=== PATIENT | male | born 1970 | race Caucasian/White ===

== ENCOUNTER → 2022-08-20 12:55 | Outpatient (CLI) | payer OTHER, SELFPAY ==
--- NOTE | ~2022-08-20 | XR_ITS ---
XR chest 2V DATE: 08/20/2022 13:42 INDICATION: Tachycardia TECHNIQUE: 2 views COMPARISON: None FINDINGS: Normal heart size. No hilar or mediastinal enlargement. No pulmonary infiltrate or consolid ation, pleural effusion or pulmonary vascular congestion or pneumothorax. Degenerative spurring of th e thoracic spine. IMPRESSION: No active cardiopulmonary disease Reviewed, dictated and finalized at location L. [employer]
== END ==
PROVIDERS: PCP Family Medicine; Visit Provider Family Medicine
DX: R00.0 Tachycardia, unspecified (principal)
CPT/HCPCS: 71046

== ENCOUNTER 2022-09-09 08:49 | Outpatient (CLI) | payer OTHER, SELFPAY ==
--- NOTE | 2022-09-09 | ECHO_ITS ---
Patient Info Name: Martin Jordan Age: 52 years : 1970 Gender: Male Ht: 66 in Wt: 195 lbs BSA: 2.06 m2 HR: 66 bpm BP: 170 / 100 mmHg Technical Quality: Good Exam Date: 09/09/2022 9:05 AM Exam Location: [facility] Patient Status: Outpatient Admit Date: 09/09/2022 Staff Ordering Physician: Gordo Finnegan MD Hair Spring Cutter: Moses Mejía RDCS, RT Attending Provider: Gordo Finnegan MD Referring Physician: Kain MCNEIL; Exam Type: CA echo doppler color flow Study Info Indications R06.02 - Shortness of breath Complete two-dimensional, color flow and Doppler transthoracic echocardiogram is performed. Strain analysis performed. Summary 1. Complete two-dimensional, color flow and Doppler transthoracic echocardiogram is performed. 2. Left ventricular chamber dimension is normal. 3. Left ventricular systolic function is normal, estimated at 60-65%. 4. There is mild concentric increased left ventricular wall thickness. 5. The left ventricular diastolic function is normal. 6. E/e' 9 is minimally elevated. 7. Left atrial chamber dimension is mildly enlarged. 8. There is trace tricuspid valve regurgitation. Left Ventricle E/e' 9 is minimally elevated. Global longitudinal strain is abnormal at -15.0%. Left ventricular chamber dimension is normal. Left ventricular systolic function is normal, estimated at 60-65%. There is mild concentric increased left ventricular wall thickness. The left ventricular diastolic function is normal. Right Ventricle Right ventricular systolic function is normal and with normal TAPSE 2.7 cm. Right ventricular chamber dimension is normal. Left Atria Left atrial chamber dimension is mildly enlarged. Right Atria Right atrial chamber dimension is normal. Aortic Valve The aortic valve is trileaflet. There is no aortic valve stenosis. There is no aortic valve regurgitation. Pulmonic Valve There is no pulmonic regurgitation. Mitral Valve There is no mitral valve stenosis. There is no mitral valve regurgitation. Tricuspid Valve There is trace tricuspid valve regurgitation. RVSP is not calculated due to an inadequate TR jet. Pericardium/Pleural There is no pericardial effusion. Inferior Vena Cava Normal inferior vena cava with >50% collapse upon inspiration consistent with normal right atrial pressure, 5 mmHg. Aorta The aortic root size at the sinus of Valsalva is normal. Left Ventricular Outflow Tract Name Value Normal LVOT 2D LVOT Diameter 2.0 cm LVOT Doppler LVOT Peak Gradient 5 mmHg LVOT Mean Gradient 3 mmHg LVOT VTI 24 cm LVOT VTI/AV VTI Ratio 1.0 LVOT Stroke Volume 71 ml LVOT CO 4.7 l/min LVOT CI 2.3 l/min/m2 Mitral Valve Name Value Normal
== END 2022-09-09 08:50 | disposition home or self-care (01) ==
LOC: ANHCARD 08:50
PROVIDERS: PCP Family Medicine; Visit Provider Family Medicine
DX: R06.00 Dyspnea, unspecified (principal); R00.0 Tachycardia, unspecified
CPT/HCPCS: 93306

== ENCOUNTER 2023-04-12 06:11 | Day surgery (SDC) | payer OTHER, SELFPAY ==
[2023-03-16 11:39] VITALS: BMI 31.3
[2023-03-24 12:56] VITALS: BMI 29.2
[2023-04-12 07:30] VITALS: BP 174/99; PULSE 56; RESP 14; TEMP 36.6; O2SAT 98
--- NOTE | 2023-04-12 07:52 | WPDANESEPPF ---
Anes - Initial Pre Proc Eval Procedure: Operation Date: 04/12/23 08:30 Proposed Procedures p Diagnostic Colonoscopy - Tal Tay MD Date/Time: 04/12/23 07:52 Surgeon: Tal Tay MD Pre Op Diagnosis: Family History of Colon Polyps Patient Data Age: 52 Gender: M Height: 1.68 m Weight: 88 kg Allergies Allergy/AdvReac Type Severity Reaction Status Date / Time No Known Allergies Allergy Mild Verified 04/12/23 07:16 Home Medications Medication Instructions Recorded Confirmed Type alprazolam 0.5 mg tablet 0.5 mg PO BID PRN anxiety #30 tabs 02/24/23 04/12/23 Rx benazepril 10 mg tablet 10 mg PO DAILY #90 tabs 02/24/23 04/12/23 Rx ezetimibe 10 mg tablet (Zetia) 10 mg PO DAILY #90 tabs 02/24/23 04/12/23 Rx Patient hx anesthesia problems: none Family hx anesthesia problems: none Results Review: All pre-operative results and documents have been reviewed as part of the pre-operative evaluation. [facility] Past Medical History Medical History BMI 31.0-31.9,adult BMI 32.0-32.9,adult BMI 33.0-33.9,adult Bronchitis, not specified as acute or chronic Chronic fatigue COVID-19 Dietary counseling and surveillance (07/01/17) Dizziness Dyspnea Elevated bilirubin Encounter for general adult medical examination without abnormal findings Encounter for screening for diabetes mellitus Encounter for screening for malignant neoplasm of prostate Essential (primary) hypertension Hypertriglyceridemia Mixed hyperlipidemia Nocturia Paronychia of left index finger Screening for colon cancer Screening for thyroid disorder Tachycardia Surgical History Surgical History (Updated 04/12/23 @ 07:53 by Michael Gibson MD) H/O colonoscopy Family History Family History Mother Family history of malignant neoplasm of stomach Father Malignant neoplasm of prostate Sibling No problems noted. 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 Informed Consent: The patient's anesthetic plan and its attendant risks and benefits were discussed with the patient/family/POA. Questions were solicited and answers provided to the satisfaction of the patient/family/POA.
--- NOTE | 2023-04-12 07:55 | SUR.PREOP ---
Dr. Gibson aware of Pt's pre-op blood pressure. Pt states being asymptomatic. Has not taken blood pressure medications for several days. Pt appears to be in no apparent distress. No new orders at this time.
[2023-04-12] MEDS: LACTATED RINGERS 1,000 ML 150 ML IV CONT (07:57)
--- NOTE | 2023-04-12 08:17 | PM.HPGS ---
History of Present Illness History of Present Illness Consent: Risks, benefits, and alternatives have been discussed and questions answered. Patient agrees to proceed with procedure. Chief complaint: Family History of Colon Polyps Narrative: Martin Jordan is a 52 year old male here for colon screening Review of Systems Constitutional: Constitutional: Denies headache(s) and Denies weakness Eyes: Eyes: Denies blurry vision ENT: Reports Normal hearing present, Denies headache(s) and Denies neck pain Cardiovascular: Cardiovascular: Denies chest pain and Denies dyspnea Respiratory: Respiratory: Denies dyspnea Gastrointestinal: Gastrointestinal: Reports no additional gastrointestinal complaints Genitourinary: Genitourinary: Denies dysuria Musculoskeletal: Musculoskeletal: Denies neck pain Integumentary/Breasts: Skin/Breast: Denies dry skin Neurologic: Reports Normal hearing present, Denies headache(s) and Denies weakness Psychiatric: Psychiatric: Denies anxiety Endocrine: Endocrine: Denies change in body appearance Hematologic/Lymphatic: Hematologic/Lymphatic: Denies easy bleeding Allergic/Immunologic: Allergic/Immunologic: Denies urticaria PMFSH Past Medical History Medical History BMI 31.0-31.9,adult BMI 32.0-32.9,adult BMI 33.0-33.9,adult Bronchitis, not specified as acute or chronic Chronic fatigue COVID-19 Dietary counseling and surveillance (07/01/17) Dizziness Dyspnea Elevated bilirubin Encounter for general adult medical examination without abnormal findings Encounter for screening for diabetes mellitus Encounter for screening for malignant neoplasm of prostate Essential (primary) hypertension Hypertriglyceridemia Mixed hyperlipidemia Nocturia Paronychia of left index finger Screening for colon cancer Screening for thyroid disorder Tachycardia Surgical History Surgical History (Updated 04/12/23 @ 07:53 by Michael Gibson MD) H/O colonoscopy Family History Family History Mother Family history of malignant neoplasm of stomach Father Malignant neoplasm of prostate Sibling No problems noted. 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[employer] Gender identity (if verbalized by the patient): Male Spiritual care concerns: No Meds Home Medications and Allergies Home Medications Medication Instructions Recorded Confirmed Type alprazolam 0.5 mg tablet 0.5 mg PO BID PRN anxiety #30 tabs 02/24/23 04/12/23 Rx benazepril 10 mg tablet 10 mg PO DAILY #90 tabs 02/24/23 04/12/23 Rx ezetimibe 10 mg tablet (Zetia) 10 mg PO DAILY #90 tabs 02/24/23 04/12/23 Rx Allergies Allergy/AdvReac Type Severity Reaction Status Date / Time No Known Allergies Allergy Mild Verified 04/12/23 07:16 Vital Signs Vital Signs - 24 hr 04/12/23 07:30 Temperature 97.9 F Pulse Rate 56 L Respiratory Rate 14 Blood Pressure 174/99 H Pulse Oximetry 98 Oxygen Delivery Room Air Exam Const: General: comfortable and no acute distress HENMT: Face/Nose/Sinus: Normal nares present Eyes: General: appearance normal, both eyes and all related structures Neck: Neck: no JVD Resp: Auscultation: clear to auscultation bilaterally Cardio: Rate: regular rate Rhythm: regular rhythm GI: Inspection: non-distended GI Palp: Yes Soft to palpation Skin: General skin exam: normal color Neuro: Gener
[2023-04-12 08:40] VITALS: BP 119/62; PULSE 76; RESP 15; O2SAT 99
[2023-04-12 08:50] VITALS: BP 121/91; PULSE 69; RESP 15; O2SAT 100
--- NOTE | 2023-04-12 08:55 | WPDANESPN ---
Anes - Prog Note Post-Op Date/Time: 04/12/23 08:55 Cardiovascular status: normal Respiratory status: normal Airway patency: baseline Mental status: baseline Post-Op hydration status: normal Vital Signs: Last Vital Signs Temp 36.6 C 04/12/23 07:30 Pulse 76 04/12/23 08:40 Resp 15 04/12/23 08:40 BP 119/62 04/12/23 08:40 Pulse Ox 99 04/12/23 08:40 O2 Del Method Room Air 04/12/23 08:40 Pain Score (VAS): 0/10 I/O: Intake & Output 04/11/23 04/12/23 04/12/23 23:59 07:59 15:59 Intake Total 400 Balance 400 Patient Feedback: Patient satisfied with anesthetic care.
[2023-04-12 09:00] VITALS: BP 134/91; PULSE 57; RESP 15; O2SAT 100
== END 2023-04-12 09:10 | disposition home or self-care (01) ==
PROVIDERS: PCP Family Medicine; Visit Provider Internal Medicine Gastroenterology
PROC: 0DJD8ZZ Inspection of Lower Intestinal Tract, Via Natural or Artificial Opening Endoscopic (ICD-10-PCS; CPT 45378; principal; 2023-04-12 08:30)
DX: Z12.11 Encounter for screening for malignant neoplasm of colon (principal)
CPT/HCPCS: 45378

== ENCOUNTER 2023-12-03 14:30 | Outpatient (CLI) | payer BC, SELFPAY ==
--- NOTE | ~2023-12-03 | US_ITS ---
US abdomen complete EXAMINATION: US Abdomen Complete INDICATION: Abdominal pain PROCEDURE: Realtime High Resolution abdomen ultrasound. COMPARISON: No prior studies for comparison FINDINGS: Gallbladder within normal limits. No gallstones, pericholecystic fluid, gallbladder wall t hickening or biliary dilatation. Common bile duct measures 2.5 mm. Liver echotexture within normal limits without focal mass. Pancreas within normal limits. Pancreati c tail is obscured by bowel gas. Spleen is unremarkeable. Renal echotexture is within normal limits bilaterally without hydronephrosis, contour deforming mass or renal stone. Right kidney measures 11.9 cm. Left kidney measures 11.6 cm. Visualized aspects of the aorta and IVC are within normal limits. Portal vein is patent. No sonograph ic Mejía's sign indicated by the technologist. IMPRESSION: 1: Normal abdominal ultrasound. Reviewed, dictated and finalized at location B.
== END 2023-12-03 14:31 | disposition home or self-care (01) ==
LOC: ANHIMG 14:30
PROVIDERS: PCP Family Medicine; Visit Provider Nurse Practitioner Adult Health
DX: R10.10 Upper abdominal pain, unspecified (principal)
CPT/HCPCS: 76700

== ENCOUNTER 2023-12-07 06:59 | Emergency (ER) | payer BC, SELFPAY ==
[2023-12-07] VITALS (9 sets, daily range): BP systolic 150–195; BP diastolic 87–106; PULSE 66–87; RESP 13–20; TEMP 36.8–37.2; O2SAT 95–100
--- NOTE | ~2023-12-07 | CT_ITS ---
EXAMINATION: CT brain wo con DATE: 12/07/2023 09:17 INDICATION: Weakness. Dizziness. Hypertension. TECHNIQUE: Computed tomography (CT) of the head was performed without intravenous contrast. The mA wa s adjusted according to patient size. Iterative reconstruction technique was employed. The dose-lengt h product was 605.33 mGy-cm. COMPARISON: None FINDINGS: There is no intracranial hemorrhage, acute infarction, or abnormal intracranial mass lesion . The ventricles are normal in size. The orbits are normal. There is mild mucosal thickening in the e thmoid sinuses. There is a small left mastoid effusion. IMPRESSION: 1. Normal brain. Reviewed, dictated and finalized at location A. IMPRESSION: 1. Normal brain.
--- NOTE | 2023-12-07 07:46 | ECG_ITS ---
SEE SCANNED COPY FOR CONFIRMED REPORT MTDD
[2023-12-07 08:19] LABS: Basophils Absolute Auto 0.1 K/mm3 (0.0-0.1); Basophils Percent Auto 0.5 % (0.2-1.2); Eosinophils Absolute Auto 0.2 K/mm3 (0-0.3); Eosinophils Percent Auto 1.7 % (0-4.4); Hematocrit 53.3 % (42.0-52.0); Hemoglobin 18.7 g/dL (14.0-18.0); Immature Granulocyte Absolute 0.06 K/mm3 (0.00-0.031); Immature Granulocyte Percent A 0.5 % (0-0.5); Lymphocytes Absolute Auto 2.73 K/mm3 (0.9-3.2); Lymphocytes Percent Auto 21.1 % (18.3-44.2); Mean Corpuscular HGB Conc 35.1 g/dl (32-36); Mean Corpuscular Volume 88.4 fl (80-100); Mean Platelet Volume 11.2 fl (7.4-10.4); Monocytes Absolute Auto 1.2 K/mm3 (0.1-0.6); Monocytes Percent Auto 9.2 % (2.6-8.5); Neutrophils Absolute Auto 8.7 K/mm3 (1.3-6.7); Platelet Count Result 188 k/mm3 (150-375); Red Blood Count 6.03 M/mm3 (4.6-6.20); Red Cell Distribution Width 12.4 % (11.5-14.5); White Blood Count 12.9 K/mm3 (4.5-10.0)
[2023-12-07 08:21] LABS: Appearance Urine Clear (Clear); Bilirubin Urine Negative (Negative); Blood Urine Negative (Negative); Color Urine Yellow (Yellow); Glucose Urine UA Negative (Negative); Ketones Urine Negative (Negative); Leukocyte Esterase Ur Negative LEU/UL (Negative); Nitrate Urine Negative (Negative); Protein Urine Negative (Negative); Specific Grav Ur 1.019 (1.001-1.035); pH Urine 6.5 (5.0-9.0)
[2023-12-07 08:33] LABS: Alanine Aminotransferase 88 U/L (6-50); Albumin Level 4.4 g/dL (3.5-5.1); Alkaline Phosphatase 62 U/L (38-126); Anion Gap 5 mmol/L (4-12); Aspartate Amino Transferase 34 U/L (17-59); Bilirubin,Total 1.9 mg/dL (0.2-1.3); Blood Urea Nitrogen 20 mg/dL (9-20); Carbon Dioxide 26 mmol/L (22-30); Chloride 106 mmol/L (98-107); Estimated CRCL calculation 101 ml/min; Estimated Glomerular Filt Rate > 60; Glucose 94 mg/dL (65-110); Potassium 4.1 mmol/L (3.4-5.0); Sodium 137 mmol/L (137-145)
[2023-12-07 08:36] LABS: Add Urine Microscopic? NO
--- NOTE | 2023-12-07 09:32 | ED.DIZZY ---
HPI - Dizziness General Chief Complaint: Dizziness Stated Complaint: htn, dizziness, abd pain Time Seen by Provider: 12/07/23 08:04 History of Present Illness HPI Narrative: 53-year-old male presenting to the emergency department for evaluation for multiple complaints and involving dizziness, abdominal pain and some anxiety. Patient states he was having some upper abdominal symptoms last week and have follow-up with his primary care physician had negative ultrasounds of his upper abdomen. Patient states he was having some increased blood pressures today so he presented emergency department for evaluation. Patient was also complaining of some increased dizziness with this today. Patient states he has been very compliant with his blood pressure medications and is very physically active. Related Data Allergies Allergy/AdvReac Type Severity Reaction Status Date / Time No Known Allergies Allergy Mild Verified 12/03/23 10:26 Review of Systems Review of Systems: All systems reviewed & are unremarkable except as noted in HPI and below PMFSH Past Medical History Medical History (Updated 12/07/23 @ 12:20 by Catalino Yip MD) BMI 31.0-31.9,adult BMI 32.0-32.9,adult BMI 33.0-33.9,adult Bronchitis, not specified as acute or chronic Chronic fatigue COVID-19 Dietary counseling and surveillance (07/01/17) Dizziness Dyspnea Elevated bilirubin Encounter for general adult medical examination without abnormal findings Encounter for screening for diabetes mellitus Encounter for screening for malignant neoplasm of prostate Essential (primary) hypertension Hypertriglyceridemia Mixed hyperlipidemia Nausea Nocturia Paronychia of left index finger Screening for colon cancer Screening for thyroid disorder Tachycardia Upper abdominal pain Surgical History Surgical History H/O colonoscopy Family History Family History Mother Family history of malignant neoplasm of stomach Father Malignant neoplasm of prostate Sibling No problems noted. Other Cerebrovascular accident Diabetes mellitus Family history of coronary artery disease Hypertension Social History Social History Smoking status: Never smoker Second hand tobacco smoke exposure: Yes Alcohol intake: current Alcohol use details: 1 PER MONTH Substance use: never Substance use type: does not use Do You Feel Safe in your Home?: Yes Lack of Transportation: No Lack of Food: Never True Current Housing: I Have Housing Concerned About Future Housing: No Difficulty Paying Gas/Electric Bills: No Difficulty Paying for Meds: No Currently Unemployed: No Education: Bachelor's Degree Difficulty w/ Childcare or Family Care: No Living arrangements: alone Occupation/Education: retired 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 Gender identity (if verbalized by the patient): Male Spiritual care concerns: No Exam Narrative: APPEARANCE: Well appearing, no pain, no distress, well-nourished. HEAD: normocephalic, atraumatic. EYES: PERRLA/EOMI, conjunctivae clear. NOSE: Normal no drainage NECK: Supple. No adenopathy, no masses. RESPIRATORY: Airway patent, respirations nonlabored. Clear to auscultation bilaterally, no rales, rhonchi, wheezing. CARDIOVASCULAR: Regular rate and rhythm without murmurs rubs or gallops. ABDOMINAL: Soft, nontender, nondistended, normal bowel sounds MUSCULOSKELETAL: Moves all extremities. Strength/ROM intact, No edema, No calf tenderness. NEURO: Alert. Cranial nerves II through XII intact. Grossly intact SKIN: Warm, dry. Normal Color Course Vital Signs Vital signs: Vital Signs Temperature 99 F 12/07/23 07:27 Pulse Rate 79 12/07/23 07:27
[2023-12-07] MEDS: LORazepam INJ (*CRX) 2 MG/ML VIAL 1 MG IV PUSH (09:42)
[2023-12-07 10:37] LABS: D Dimer 0.31 ug/mL (<0.48)
--- NOTE | 2023-12-07 11:01 | ECG_ITS ---
SEE SCANNED COPY FOR CONFIRMED REPORT. MTDD
[2023-12-07 11:15] LABS: Troponin I < 0.012 ng/mL (0.000-0.034)
[2023-12-07 11:46] LABS: Troponin I < 0.012 ng/mL (0.000-0.034)
== END 2023-12-07 12:40 | disposition home or self-care (01) ==
PROVIDERS: Emergency Provider Emergency Medicine; PCP Family Medicine
DX: I10 Essential (primary) hypertension (principal); E78.2 Mixed hyperlipidemia; Z86.16 Personal history of COVID-19; Z77.22 Contact with and (suspected) exposure to environmental tobacco smoke (acute) (chronic)
CPT/HCPCS: 36415; 70450; 80053; 81003; 84484; 85025; 85380; 93005; 96374; 99284; J2060

== ENCOUNTER 2024-06-30 11:01 | Emergency (ER) | payer BC, SELFPAY ==
--- NOTE | ~2024-06-30 | XR_ITS ---
EXAMINATION: XR shoulder LT min 2V DATE: 06/30/2024 11:33 INDICATION: Left shoulder pain TECHNIQUE: AP internally and externally rotated, AP oblique externally rotated and transscapular Y vi ews of the left shoulder were obtained. COMPARISON: None FINDINGS: Normal alignment. No fracture. Glenohumeral joint is normal. Moderate left acromioclavicular osteoar thritis with inferiorly directed osteophytes at the lateral head of the clavicle. This most portion o f the left lung is clear. Soft tissues are unremarkable. IMPRESSION: Moderate left acromioclavicular osteoarthritis. Reviewed, dictated and finalized at location A. [employer]ODU[employer] PROC[employer]
[2024-06-30 11:06] VITALS: BP 159/83; PULSE 65; RESP 16; TEMP 36.2; O2SAT 97
--- NOTE | 2024-06-30 11:34 | ED_ITS ---
HPI - General Adult General Chief complaint: Extremity Injury, Upper Stated complaint: Left shoulder pain, thinks he tore rotator cuff Time Seen by Provider: 06/30/24 11:17 History of Present Illness HPI narrative: This is a 53 old male presenting with left shoulder pain. Patient was bowling yesterday when he felt a popping sensation in shoulder. Now he is having difficulty abducting his arm past 90?. No significant pain. No weakness in his fac engineer strength her elbow. Patient has a history of chronic shoulder issues from power lifting. Related Data Allergies Allergy/AdvReac Type Severity Reaction Status Date / Time No Known Allergies Allergy Mild Verified 06/30/24 11:08 [facility] Past Medical History Medical History BMI 31.0-31.9,adult BMI 32.0-32.9,adult BMI 33.0-33.9,adult Bronchitis, not specified as acute or chronic Chronic fatigue COVID-19 Dietary counseling and surveillance (07/01/17) Dizziness Dyspnea Elevated bilirubin Encounter for general adult medical examination without abnormal findings Encounter for screening for diabetes mellitus Encounter for screening for malignant neoplasm of prostate Essential (primary) hypertension Hypertriglyceridemia Mixed hyperlipidemia Nausea Nocturia Paronychia of left index finger Screening for colon cancer Screening for thyroid disorder Tachycardia Upper abdominal pain Surgical History Surgical History H/O colonoscopy Family History Family History Mother Family history of malignant neoplasm of stomach Father Malignant neoplasm of prostate Sibling No problems noted. Other Cerebrovascular accident Diabetes mellitus Family history of coronary artery disease Hypertension Social History Social History Smoking status: Never smoker Second hand tobacco smoke exposure: Yes Alcohol intake: current Alcohol use details: 1 PER MONTH Substance use: never Substance use type: does not use Do You Feel Safe in your Home?: Yes Lack of Transportation: No Lack of Food: Never True Current Housing: I Have Housing Concerned About Future Housing: No Difficulty Paying Gas/Electric Bills: No Difficulty Paying for Meds: No Currently Unemployed: No Education: Bachelor's Degree Difficulty w/ Childcare or Family Care: No Living arrangements: alone Occupation/Education: retired 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 Gender identity (if verbalized by the patient): Male Spiritual care concerns: No Exam Narrative: APPEARANCE: No apparent distress. Patient is very muscular Head: atraumatic. EYES: EOMI, NOSE: Atraumatic NECK: Trachea midline RESPIRATORY: No increased rate of breathing CARDIOVASCULAR: RRR, ABDOMINAL: Non-distended MUSCULOSKELETAl: focal exam left shoulder revealed no deformities swelling or skin changes. Pain with abduction of the arm. Classroom Paraprofessional strength intact. Pulses +2. Compartments are soft. NEURO: Alert. Moving 4/4 extremities SKIN:: Warm, dry. Normal color PSYCHIATRIC: Normal affect Course Vital Signs Vital signs: Vital Signs Temperature 97.1 F L 06/30/24 11:06 Pulse Rate 65 06/30/24 11:06 Respiratory Rate 16 06/30/24 11:06 Blood Pressure 159/83 H 06/30/24 11:06 Pulse Oximetry 97 06/30/24 11:06 Oxygen Delivery Room Air 06/30/24 11:06 Temperature 97.1 F L 06/30/24 11:06 Pulse Rate 65 06/30/24 11:06 Respiratory Rate 16 06/30/24 11:06 Blood Pressure 159/83 H 06/30/24 11:06 Pulse Oximetry 97 06/30/24 11:06 Oxygen Delivery Room Air 06/30/24 11:06 Medical Decision Making MDM Narrative Medical decision making narrative: -Course: 53-year-old male presenting with left shoulder pain after bowling incident. -DDX includes but is not limited to: -Co-morbidities complicating care: -Social determinants of health: -External Chart Review: -Hx from independent Sources: -Independent interpretation of studies: -Discussion of Management/Consultants: -Dx tests considered but not ordered: -Procedures: -Interventions: -Shared decision making / Disposition: -RX Vital Signs Vital Signs: Vital Signs Temperature 97.1 F L 06/30/24 11:06 Pulse Rate 65 06/30/24 11:06 Respiratory Rate 16 06/30/24 11:06 Blood Pressure 159/83 H 06/30/24 11:06 Pulse Oximetry 97 06/30/24 11:06 Oxygen Delivery Room Air 06/30/24 11:06 Temperature 97.1 F L 06/30/24 11:06 Pulse Rate 65 06/30/24 11:06 Respiratory Rate 16 06/30/24 11:06 Blood Pressure 159/83 H 06/30/24 11:06 Pulse Oximetry 97 06/30/24 11:06 Oxygen Delivery Room Air 06/30/24 11:06 Discharge Plan Discharge Clinical Impression: Acute shoulder pain Patient Disposition: Home, Self-Care Condition: Stable Instructions: Antibiotic Form, Shoulder Pain (ED) Additional Instructions: Please use Motrin and Tylenol as needed for pain. Please follow-up with orthopedics for further evaluation of her shoulder. If you develop severe pain or weakness return to the ED for re-evaluation. Prescriptions: No Action ondansetron 4 mg tablet,disintegrating 4 mg PO Q8H PRN (Reason: nausea and vomiting) Qty: 20 0RF benazepril 10 mg tablet 10 mg PO DAILY Qty: 90 2RF alprazolam 0.5 mg tablet 0.5 mg PO BID PRN (Reason: anxiety) Qty: 30 0RF Rx Instructions: takes prior to airplane flight ezetimibe [Zetia] 10 mg tablet 10 mg PO DAILY Qty: 90 3RF Follow-up/Referrals: Torito Rojas MD [Physician] - 1 Week (Shoulder pain ) Gordo Finnegan MD [Primary Care Provider] -
== END 2024-06-30 11:57 | disposition home or self-care (01) ==
LOC: ANHED 11:50
PROVIDERS: Emergency Provider Emergency Medicine; PCP Family Medicine
DX: M25.512 Pain in left shoulder (principal); E78.2 Mixed hyperlipidemia; I10 Essential (primary) hypertension
CPT/HCPCS: 73030; 99283